=== PATIENT | female | born 1940 | race Caucasian/White ===

== ENCOUNTER 2018-04-13 13:38 | Outpatient (CLI) | payer MEDICARE ==
--- NOTE | 2018-04-14 09:46 | Mammography Report ---
Reason: ANNUAL SCREENING HX OF LEFT BREAST CA Procedure Date: 04/13/2018 Accession Number: [id number] / [id number] Procedure: [facility]INA - Screening Mammo Right w/Aric CPT Code: FULL RESULT: EXAM: Screening Mammo Right w/Aric DATE: 04/13/2018 2:00 PM CLINICAL HISTORY: ANNUAL SCREENING HX OF LEFT BREAST CA TECHNIQUE: Right CC and MLO projections with tomography COMPARISON: 02/28/2017, 04/08/2016 and 03/24/2015 FINDINGS: The right breast tissue is heterogeneously dense. In the retroareolar right breast 10:00 position is a lobulated 1.1 x 1.2 x 1.2 cm soft tissue mass best seen on tomographic images CC #26 and MLO #21. There appears to be a biopsy clip immediately posterior, superior, and lateral to this mass. There are a few scattered calcifications present. Vascular calcifications noted. No other dominant mass, architectural distortion, suspicious microcalcifications or interval change. IMPRESSION: Lobulated right retroareolar mass for which ultrasound is suggested. BI-RADS 0: Needs additional evaluation right breast by ultrasound.
== END 2018-04-13 13:39 | disposition home or self-care (01) ==
LOC: DI 13:38
DX: Z12.31 Encounter for screening mammogram for malignant neoplasm of breast (principal); Z85.3 Personal history of malignant neoplasm of breast
CPT/HCPCS: 77063

== ENCOUNTER 2018-04-20 12:44 | Outpatient (CLI) | payer MEDICARE ==
--- NOTE | 2018-04-20 16:16 | Ultrasound Report ---
Reason: ABN MAMMO - RT SPEC VIEW ULTRASOUND Procedure Date: 04/20/2018 Accession Number: [id number] / [id number] Procedure: US - Breast Unilateral Limited CPT Code: FULL RESULT: EXAM: Breast Unilateral Limited DATE: 04/20/2018 1:22 PM CLINICAL HISTORY: ABN MAMMO - RT SPEC VIEW ULTRASOUND COMPARISON: Mammogram 04/13/2018 as well as prior mammograms. TECHNIQUE: Targeted ultrasound was performed of the right breast in the area of clinical concern at 9-10 o'clock and within 1 cm distance from the nipple. Color Doppler was employed as appropriate. FINDINGS: Corresponding to the mammographic finding is a complex cyst which measures 1.1 x 0.8 x 1.1 cm with increased through transmission imperceptibly thin wall and a few septations but no solid soft tissue component and no vascularity by color Doppler. Sonographically, the finding is immediately adjacent to the biopsy clip and possibly a result of prior intervention. Overall, typically benign features. IMPRESSION: Benign findings RECOMMENDATION: Annual screening mammography. BIRADS CATEGORY 2: Benign findings RADIA
== END 2018-04-20 12:45 | disposition home or self-care (01) ==
LOC: DI 12:44
PROVIDERS: ATTEND Family Medicine
DX: N60.01 Solitary cyst of right breast (principal)
CPT/HCPCS: 76642

== ENCOUNTER 2019-05-10 13:54 | Outpatient (CLI) | payer MEDICARE ==
--- NOTE | 2019-05-15 09:54 | Mammography Report ---
Reason: ROUTINE SCREENING Procedure Date: 05/10/2019 Accession Number: [id number] / [id number] Procedure: [facility]INA - Screening Mammo Right w/Aric CPT Code: Final Report FULL RESULT: EXAM: Screening Mammo Right w/Aric DATE: 05/10/2019 2:17 PM CLINICAL HISTORY: Screening encounter. History of benign right breast biopsy. History of left breast mastectomy for personal breast cancer history. TECHNIQUE: (R) - Right CC and MLO views were obtained. COMPARISON: 04/13/2018 through 03/16/2015. PARENCHYMAL PATTERN: (D) - The breast(s) demonstrate(s) heterogeneously dense fibroglandular parenchyma. FINDINGS: Postbiopsy changes are stable, typically benign. There are no suspicious masses, calcifications, or areas of distortion. IMPRESSION: Benign findings. BI-RADS category 2. RECOMMENDATION: (ANNUAL) - Recommend routine annual screening mammography. BI-RADS CATEGORY: (2) - Benign Findings. STANDARD QUALIFYING STATEMENTS: 1. This examination was not reviewed with the aid of Computer-Aided Detection (CAD). 2. A negative or benign imaging report should not preclude biopsy if clinically suspicious findings are present. 3. Dense breasts may obscure an underlying neoplasm. 4. This examination was reviewed with the aid of 3D breast imaging (tomosynthesis).
== END 2019-05-10 13:55 | disposition home or self-care (01) ==
LOC: DI 13:54
DX: Z12.31 Encounter for screening mammogram for malignant neoplasm of breast (principal); Z85.3 Personal history of malignant neoplasm of breast; Z90.12 Acquired absence of left breast and nipple
CPT/HCPCS: 77063